=== PATIENT | female | born 1995 | race American Indian/Alaskan Native ===

== ENCOUNTER 2019-02-18 15:33 | Emergency (ER) | payer SELFPAY ==
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
[2019-02-18 21:57] LABS: Basophils # (Auto) 0.1 K/mm3 (0.0-0.1); Basophils % (Auto) 0.6 % (0.0-1.8); Eosinophils % (Auto) 0.3 % (0.0-4.3); Hematocrit 37.1 % (30.3-42.9); Hemoglobin 12.8 gm/dl (10.1-14.3); Lymphocytes # (Auto) 1.8 K/mm3 (1.2-5.4); Lymphocytes % (Auto) 17.7 % (13.4-35.0); Mean Corpuscular HGB Conc 34 % (30-34); Mean Corpuscular Volume 79 fl (79-97); Monocytes # (Auto) 0.7 K/mm3 (0.0-0.8); Monocytes % (Auto) 6.8 % (0.0-7.3); Platelet Count 285 K/mm3 (140-440); Red Blood Count 4.72 M/mm3 (3.65-5.03); Red Cell Distribution Width 16.6 % (13.2-15.2)
[2019-02-18 22:11] LABS: Calcium 10.5 mg/dL (8.4-10.2); Hemolysis Index 1
[2019-02-18 22:15] LABS: Amphetamine Screen,Urine PRESUMPTIVE NEGATIVE; Benzodiazepines Screen,Urine PRESUMPTIVE NEGATIVE; Cocaine Screen,Urine PRESUMPTIVE NEGATIVE; Methadone Screen,Urine PRESUMPTIVE NEGATIVE; Opiate Screen,Urine PRESUMPTIVE NEGATIVE
[2019-02-18 22:18] LABS: Bacteria,Urine 1+ /HPF (Negative); Bilirubin,Urine NEG (Negative); Blood,Urine NEG (Negative); Color,Urine Yellow (Yellow); Mucus,Urine 2+ /HPF
[2019-02-18 22:24] LABS: BUN/Creatinine Ratio 7; Blood Urea Nitrogen 5 mg/dL (7-17)
[2019-02-18 22:27] LABS: Cannabinoid Screen,Urine PRESUMPTIVE POSITIVE
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
[2019-02-19] MEDS: COGENTIN PO SCH ×2 (12:45→22:07)
[2019-02-19] MEDS: GEODON PO SCH ×2 (12:45→22:07)
[2019-02-20] MEDS: COGENTIN PO SCH (10:04)
[2019-02-20] MEDS: GEODON PO SCH (10:04)
[2019-02-20 10:35] LABS: Basophils % (Auto) 0.5 % (0.0-1.8); Eosinophils # (Auto) 0.1 K/mm3 (0.0-0.4); Eosinophils % (Auto) 1.5 % (0.0-4.3); Hematocrit 35.5 % (30.3-42.9); Hemoglobin 11.8 gm/dl (10.1-14.3); Lymphocytes # (Auto) 1.8 K/mm3 (1.2-5.4); Mean Corpuscular HGB Conc 33 % (30-34); Mean Corpuscular Volume 79 fl (79-97); Monocytes # (Auto) 0.6 K/mm3 (0.0-0.8); Monocytes % (Auto) 10.5 % (0.0-7.3); Platelet Count 263 K/mm3 (140-440); Red Blood Count 4.49 M/mm3 (3.65-5.03); Red Cell Distribution Width 16.7 % (13.2-15.2)
--- NOTE | 2019-02-20 13:54 | Progress Note ---
Subjective - Reason for Consult Consult date: 02/20/19 Reason for consult: Psychiatric Follow-up Evaluation Mental Status Exam - Vital signs Last Vital Signs Temp 97.8 F 02/20/19 07:48 Pulse 70 02/20/19 07:48 Resp 16 02/20/19 10:13 BP 105/70 02/20/19 07:48 Pulse Ox 100 02/20/19 07:48
[2019-02-20 17:39] VITALS: BP 105/68
== END 2019-02-20 17:36 ==
LOC: ED 15:33 → EEVIPCON 15:33 → ED 02-20 17:36
DX: F39 Unspecified mood [affective] disorder (principal); F90.9 Attention-deficit hyperactivity disorder, unspecified type; F12.10 Cannabis abuse, uncomplicated; R51 Headache; F17.200 Nicotine dependence, unspecified, uncomplicated
CPT/HCPCS: 36415; 70450; 73590; 80048; 80307; 81001; 84703; 85025; 99285; G0480; 80320